=== PATIENT | female | born 1955 | race Caucasian/White ===

== ENCOUNTER → 2017-01-04 | Outpatient (CLI) | payer BC ==
[~2017-01-04] MED LIST: ACTIGALL300 M1 PO; ASPIR 8181 MG PO; BACTRIM DS1 TAB PO; BONIVA150 MG PO; CALCIUM600 MG PO; CLARITIN D 24HR1 TAB PO; CORDARONE,PACE200 MG PO; COREG12.5 MG PO; DELTASONE10 MG PO; DELTASONE50 MG PO; ELIQUIS2.5 MG PO; FOLIC ACID 40400 MCG PO; INDERAL LA60 MG PO; LASIX20 MG PO; LEVOTHROID (S125 MCG PO; MIRALAX17 GM PO; MOVE FREE ULTR1 EACH PO; OS-CAL 250 MG+D1 TAB PO; OSCAL + D500 MG PO; PROTONIX40 MG PO; SINGULAIR10 MG PO; SLOW-MAG (64 MG1 TAB PO; TYLENOL PM EX-1 EACH PO; ZESTRIL2.5 MG PO; ZOFRAN4 MG PO
== END ==
LOC: LNHI 16:46
DX: I50.22 Chronic systolic (congestive) heart failure (principal); I48.0 Paroxysmal atrial fibrillation; N18.3 Chronic kidney disease, stage 3 (moderate)